=== PATIENT | female | born 1995 | race Caucasian/White ===

== ENCOUNTER 2020-06-26 16:49 | Observation (INO) | payer MEDICARE ==
[~2020-06-26] VITALS: Ht 162.6 cm; Wt 70.3 kg
[2020-06-26] MEDS ORDERED: [UNRECOGNIZED DRUG - CODE] MT (18:24)
[2020-06-26] MEDS ORDERED: PNV1TABL76 MT (18:24)
[2020-06-26] MEDS ORDERED: TERBUTALINE SULFATE 1MG/ML VIAL SUBCUT NR (20:15)
[2020-06-26] MEDS ORDERED: SODIUM CHLORIDE 0.9% 1000ML BAG (SEPSIS BOLUS) IV ONE (20:15)
[2020-06-26] MEDS ORDERED: SODIUM CHLORIDE 0.9% 1,000 ML IV SCH (20:30)
== END 2020-06-26 22:00 | disposition home or self-care (01) ==
LOC: 8 EST LDRP 16:49
PROVIDERS: ADMIT Obstetrics & Gynecology; ATTEND Obstetrics & Gynecology
DX: O26.893 Other specified pregnancy related conditions, third trimester (principal); R10.2 Pelvic and perineal pain; O99.89 Other specified diseases and conditions complicating pregnancy, childbirth and the puerperium; M54.5 Low back pain; Z3A.36 36 weeks gestation of pregnancy
CPT/HCPCS: 59025; 96372; G0378; J3105; 99281

== ENCOUNTER 2020-07-14 04:15 | Inpatient (IN) | payer MEDICARE ==
[~2020-07-14] VITALS: Ht 162.6 cm; Wt 72.6 kg
[~2020-07-14 04:15] MED LIST: PNV1TABL76 MT; [UNRECOGNIZED DRUG - CODE] MT
[2020-07-14] MEDS ORDERED: FERR325T6 PO (04:55)
[2020-07-14] MEDS ORDERED: DEXT 5%/LR + PITOCIN 20UNITS/L 1,000 ML IV SCH ×2 (05:39→15:29)
[2020-07-14] MEDS ORDERED: BUTORPHANOL TARTRATE 2 MG/ML VIAL IV PRN (05:45)
[2020-07-14] MEDS ORDERED: NALOXONE HCL 0.4 MG/ML 1ML VIAL IM PRN (05:45)
[2020-07-14] MEDS ORDERED: LIDOCAINE HCL 1% 20ML VIAL (Pyxis) INJ INFIL SCH (05:45)
[2020-07-14] MEDS ORDERED: CARBOPROST TROMETHAMINE 250 MCG/ML AMPUL IM PRN (05:45)
[2020-07-14] MEDS ORDERED: METHYLERGONOVINE MALEATE 0.2 MG/ML IM PRN (05:45)
[2020-07-14] MEDS ORDERED: MISOPROSTOL 100MCG TABLET VG SCH (05:45)
[2020-07-14] MEDS ORDERED: MINERAL OIL 30ML BOTTLE TOP NR (06:00)
[2020-07-14] MEDS ORDERED: PENICILLIN G POTASSIUM 5 MMU in DEXT 5% WATER 100 ML IV SCH (06:00)
[2020-07-14] MEDS: LACTATED RINGERS 1,000 ML IV SCH ×2 (06:17→07:35)
[2020-07-14 06:32] LABS: BASOPHILS % 0.4 % (0.0-2.0); EOSINOPHILS % 0.4 % (0.0-5.0); HEMATOCRIT. 34.3 % (36.0-48.0); HEMOGLOBIN. 11.2 g/dL (12.0-16.0); MEAN CORPUSCULAR HEMOGLOBIN 24.8 pg (28.0-32.0); MEAN CORPUSCULAR VOLUME 76.1 fL (81.0-99.0); MONOCYTES % 7.2 % (2.0-8.0); PLATELET 246 x1000/uL (130-400); RED BLOOD CELL COUNT 4.51 mill/uL (4.2-5.4); RED CELL DISTRIBUTION WIDTH 15.8 % (11.6-14.6)
[2020-07-14 06:33] LABS: CLARITY URINE CLEAR (CLEAR); COLOR URINE YELLOW (YELLOW); KETONES URINE NEGATIVE (NEGATIVE); LEUKOCYTE ESTERASE URINE 2+ (NEGATIVE); NITRITE URINE NEGATIVE (NEGATIVE); OCCULT BLOOD URINE NEGATIVE (NEGATIVE); PROTEIN URINE NEGATIVE (NEGATIVE); SPECIFIC GRAVITY URINE 1.012 (1.005-1.030); UROBILINOGEN URINE 0.2 E.U./dL (0.2-1.0)
[2020-07-14] MEDS ORDERED: ROPIVACAINE HCL/PF EPIDURAL 200 ML EPI SCH (06:45)
[2020-07-14 06:46] LABS: PARTIAL THROMBOPLASTIN TIME 26.4 sec (23.4-31.0); PROTHROMBIN TIME 10.2 sec (9.6-11.0)
[2020-07-14 06:53] LABS: *AMPHETAMINES SCREEN URINE NEGATIVE (NEGATIVE); *BARBITURATES SCREEN URINE NEGATIVE (NEGATIVE); *BENZODIAZEPINES SCREEN URINE NEGATIVE (NEGATIVE); *COCAINE SCREEN URINE NEGATIVE (NEGATIVE)
[2020-07-14 06:54] LABS: METHADONE URINE SCREEN NEGATIVE (NEGATIVE); OPIATES URINE SCREEN NEGATIVE (NEGATIVE); PHENCYCLIDINE URINE SCREEN NEGATIVE (NEGATIVE)
[2020-07-14 06:56] LABS: CANNABINOID URINE SCREEN NEGATIVE (NEGATIVE)
[2020-07-14] MEDS ORDERED: PENICILLIN G POTASSIUM 2.5 MMU in DEXTROSE 5% WATER 50 ML IV SCH (10:00)
[2020-07-14] MEDS ORDERED: LIDOCAINE HCL 2%/EPINEPHRINE 1:100,000 20 ML VIAL INFIL ONE (12:00)
[2020-07-14 14:47] LABS: HEPATITIS B SURFACE ANTIGEN NEGATIVE
[2020-07-14] MEDS ORDERED: GLYCERIN/WITCH HAZEL LEAF MEDICATED PAD TOP PRN (15:30)
[2020-07-14] MEDS ORDERED: OXYCODONE HCL/ACETAMINOPHEN 5/325MG TABLET PO PRN (15:30)
[2020-07-14] MEDS ORDERED: DIPHENHYDRAMINE 25MG CAPSULE PO PRN (15:30)
[2020-07-14] MEDS ORDERED: LANOLIN OINT 7GM TUBE TOP PRN (15:30)
[2020-07-14] MEDS ORDERED: IBUPROFEN 400MG TABLET PO PRN (15:30)
[2020-07-14] MEDS ORDERED: IBUPROFEN 800MG TABLET PO PRN (15:30)
[2020-07-14] MEDS ORDERED: HEMORRHOIDAL SUPP PR PRN (15:30)
[2020-07-14] MEDS ORDERED: RHO(D) IMMUNE GLOBULIN 300 MCG/SYR IM PRN (15:30)
[2020-07-14] MEDS ORDERED: BISACODYL 10MG SUPP PR PRN (15:30)
[2020-07-14 17:05] VITALS: BP 118/80
[2020-07-14 17:45] VITALS: BP 117/79
[2020-07-14] MEDS: SIMETHICONE 80MG TABLET CHEW PO SCH (17:53)
[2020-07-14 20:00] VITALS: BP 108/61
[2020-07-14] MEDS ORDERED: DOCUSATE SODIUM 100MG CAPSULE PO SCH (21:00)
[2020-07-15 04:00] VITALS: BP 120/71
[2020-07-15 06:10] LABS: BASOPHILS % 0.4 % (0.0-2.0); EOSINOPHILS % 0.7 % (0.0-5.0); HEMATOCRIT. 33.1 % (36.0-48.0); HEMOGLOBIN. 10.8 g/dL (12.0-16.0); MEAN CORPUSCULAR HEMOGLOBIN 24.6 pg (28.0-32.0); MEAN CORPUSCULAR VOLUME 75.7 fL (81.0-99.0); MONOCYTES % 6.5 % (2.0-8.0); NEUTROPHILS % 68.4 % (40.0-76.0); PLATELET 210 x1000/uL (130-400); RED BLOOD CELL COUNT 4.38 mill/uL (4.2-5.4); RED CELL DISTRIBUTION WIDTH 15.7 % (11.6-14.6)
[2020-07-15] MEDS ORDERED: IBUP-2030 PO (07:02)
[2020-07-15] MEDS: FERROUS SULFATE 325MG TABLET PO SCH ×2 (07:30→12:30)
[2020-07-15 08:00] VITALS: BP 111/69
[2020-07-15] MEDS: SIMETHICONE 80MG TABLET CHEW PO SCH ×2 (08:00→13:00)
[2020-07-15] MEDS ORDERED: PRENATAL VIT/FE FUMARATE/FA TABLET PO SCH (09:00)
[2020-07-15 16:00] VITALS: BP 110/66
== END 2020-07-15 21:00 | disposition home or self-care (01) | DRG 560 ==
LOC: 8 EST LDRP 04:15 → OBSVTOIN 04:15 → 8EST 16:25
PROVIDERS: ADMIT Obstetrics & Gynecology; ATTEND Obstetrics & Gynecology
PROC: 10E0XZZ Delivery of Products of Conception, External Approach (ICD-10-PCS; principal; 2020-07-14)
PROC: 3E0R3BZ Introduction of Anesthetic Agent into Spinal Canal, Percutaneous Approach (ICD-10-PCS; 2020-07-14)
PROC: 00HU33Z Insertion of Infusion Device into Spinal Canal, Percutaneous Approach (ICD-10-PCS; 2020-07-14)
DX: O99.02 Anemia complicating childbirth (principal); O99.354 Diseases of the nervous system complicating childbirth; G40.909 Epilepsy, unspecified, not intractable, without status epilepticus; Z37.0 Single live birth; O99.824 Streptococcus B carrier state complicating childbirth; D64.9 Anemia, unspecified; Z3A.38 38 weeks gestation of pregnancy
CPT/HCPCS: 36415; 80305; 81003; 85025; 86592; 86703; 86762; 86850; 86900; 87340; 99281; J0595; J2540; J2590; J2795; J3490; J7060; J7120